=== PATIENT | female | born 1990 | race Caucasian/White ===

== ENCOUNTER 2017-06-13 12:31 | Emergency (ER) | payer SELFPAY ==
[~2017-06-13] VITALS: Ht 165.1 cm; Wt 95.4 kg
[~2017-06-13 12:31] MED LIST: ALPR1TAB2 PO; ALPR2TAB1 PO; ESCI10TA PO
[2017-06-13 12:42] VITALS: BP 113/92
--- NOTE | 2017-06-13 12:47 | NUR ---
PT AMBULATED TO [facility]
--- NOTE | 2017-06-13 12:54 | NUR ---
PATIENT PRESENTS TO ED WITH C/O THROAT PAIN X 2 DAYS----RECENTLY WITH COLD SYMPTOMS PAIN UPON SWALLOWING---- FULL CLEAR SPEECH, NO DROOLING NOTED HX---ANXIETY, DEPRESSION RX---LEXAPRO, XANAX; DENIES N/V/D; SKIN IS PINK/WARM/DRY; AAOX4 WITH EVEN AND STEADY GAIT; LUNGS CLEAR BL; HR EVEN AND REGULAR; PT DENIES ANY FEVER, CP, SOB, OR COUGH AT THIS TIME; PATIENT STATES PAIN OF 0/10 AT THIS TIME; VSS; PATIENT POSITIONED FOR COMFORT; ER MD MADE AWARE OF PT STATUS.
--- NOTE | 2017-06-13 12:54 | NUR ---
DR YBARRA EVALUATING PT AT BEDSIDE
[2017-06-13] MEDS ORDERED: DEXAMETHASONE 4 MG/ML VIAL PO ONE (13:05)
[2017-06-13 13:33] VITALS: BP 133/73
--- NOTE | 2017-06-13 13:33 | NUR ---
Patient discharged with v/s stable. Written and verbal after care instructions given and explained. Patient verbalized understanding. Ambulatory with steady gait. All questions addressed prior to discharge. Advised to follow up with PMD.
== END 2017-06-13 13:33 | disposition home or self-care (01) ==
LOC: MED 12:31
DX: J02.9 Acute pharyngitis, unspecified (principal); R50.9 Fever, unspecified; F41.9 Anxiety disorder, unspecified; F17.210 Nicotine dependence, cigarettes, uncomplicated; Z79.899 Other long term (current) drug therapy; Z88.2 Allergy status to sulfonamides; Z88.8 Allergy status to other drugs, medicaments and biological substances
CPT/HCPCS: 99282; J1100

== ENCOUNTER 2017-06-19 07:23 | Emergency (ER) | payer SELFPAY ==
[~2017-06-19] VITALS: Ht 162.6 cm; Wt 96.2 kg
[2017-06-19 07:27] VITALS: BP 129/75
--- NOTE | 2017-06-19 07:31 | NUR ---
PT AMBULATED TO ER BED 03
--- NOTE | 2017-06-19 07:35 | NUR ---
27 YO F BIB SELF W/ C/O RIGHT THROAT PAIN AND RIGHT EAR PAIN X 1.5 WEEKS. PT REPORTS SHE WAS HERE IN ER ON Wednesday06/12/17 FOR BILATERAL THROAT PAIN AND REPORTS THAT NOW THERE IS ONLY PAIN ON THE RIGHT SIDE OF THROAT AND UP TO HER RIGHT EAR. PT HAD TUBES PLACED IN HER EARS FOR CHRONIC EAR INFECTIONS A CHILD, BUT REPORTS NO OTHER PAST MED HX. ALLERGY TO SULFA. SLIGHT REDNESS/SWELLING NOTED ON RIGHT SIDE OF THROAT. PT DENIES FEVER/CHILLS. PT DENIES COUGH/ABD PAIN, N/V/D AT THIS TIME. LUNG SOUNDS CLEAR BILATERALLY. NO S/S OF ACUTE RESPIRATORY DISTRESS. PT A&O X4. GCS 15. STEADY GAIT. CMS INTACT. ER MD VOGT NOTIFIED. SAFETY PRECAUTIONS IN PLACE. PT NEEDS MET AT THIS TIME. WILL CONTINUE TO MONITOR.
--- NOTE | 2017-06-19 07:55 | NUR ---
STREP SWAB AND THROAT CULTURE COLLECTED AND SENT WITH LAB.
--- NOTE | 2017-06-19 09:30 | NUR ---
Patient discharged with v/s stable. Written and verbal after care instructions given and explained. Patient alert, oriented and verbalized understanding of instructions. Ambulatory with steady gait. All questions addressed prior to discharge. ID band removed. Patient advised to follow up with PMD. Rx of Ibuprofen 600 mg tab and Amoxicillin 500mg tab given. Patient educated on indication of medication including possible reaction and side effects. Opportunity to ask questions provided and answered.
[2017-06-19 09:46] VITALS: BP 128/73
--- NOTE | 2017-06-22 07:09 | NUR ---
PATIENT DISCHARGED HOME WITH SCRIPT FOR AMOXICILLIN DR LAGUERRE STATES SHE IS COVERED.
== END 2017-06-19 09:30 | disposition home or self-care (01) ==
LOC: MED 07:23
DX: H66.91 Otitis media, unspecified, right ear (principal); J03.90 Acute tonsillitis, unspecified; F32.9 Major depressive disorder, single episode, unspecified; F41.9 Anxiety disorder, unspecified; Z88.8 Allergy status to other drugs, medicaments and biological substances
CPT/HCPCS: 36415; 86308; 87081; 99284

== ENCOUNTER 2017-11-25 11:01 | Emergency (ER) | payer SELFPAY ==
[~2017-11-25] VITALS: Ht 261.6 cm; Wt 81.6 kg
--- NOTE | 2017-11-25 11:18 | NUR ---
PATIENT AMBULATED TO BED 2 AT THIS TIME.
[2017-11-25 11:24] VITALS: BP 126/85
--- NOTE | 2017-11-25 11:30 | NUR ---
PT. CAME INTO THE ED DUE TO ANXIETY SINCE THIS MORNING. PT. STATES " AT AROUND 430 AM I STARTED GETTING ANXIOUS I TRIED TO CALM MYSELF DOWN AND IT DIDNT WORK, I CALLED MY DOCTOR AND HE DIDNT HAVE AN APPT FOR A MONTH. I STOPPED TAKING MY MEDICATION X 1 MONTH BECAUSE I STARTED TRYING DIFFERENT THINGS LIKE MEDITATION AND I HAD BEEN DOING FINE". PT. ABLE TO SPEAK IN COMPLETE AND FULL SENTENCES AND RR EVEN AND UNLABORED. PT. C/O SOB , LS: CLEAR THROUGHOUT AT LOBES BILATERALLY. O2 SAT: 100% VIA ROOM AIR. PT. STATES " I HAVE THROWN UP TWICE" NO BLOOD IN VOMIT. PT. C/O DIAHRRHEA WELL. PER PT " I VOMIT AND GET DIAHRRHEA EVERYTIME I GET AN ANXIETY ATTACK, I HAVNT BEEN THIS BAD IN YEAR". ER MD NOTIFIED. VSS. SAFETY PRECAUTIONS IMPLEMENTED. CALL LIGHT WITHIN REACH. WILL CONTINUE TO MONITOR.
--- NOTE | 2017-11-25 11:45 | NUR ---
ER MD CARABALLO AT BEDSIDE , EVALUATING PATIENT.
[2017-11-25] MEDS ORDERED: ALPRAZolam 0.5 MG TAB PO ONE (12:25)
[2017-11-25] MEDS ORDERED: ONDANSETRON 4 MG ODT PO ONE (12:25)
--- NOTE | 2017-11-25 12:45 | NUR ---
PT. RESTING COMFORTABLY IN BED, RR EVEN AND UNLABORED. VSS. BED IN LOWEST POSITION. WILL CONTINUE TO MONITOR.
--- NOTE | 2017-11-25 13:59 | NUR ---
PT. IN BED , VSS. RR EVEN AND UNLABORED. PT. PROVIDED WATER. BED IN LOWEST POSITION. WILL CONTINUE TO MONITOR.
[2017-11-25 14:09] VITALS: BP 124/78
--- NOTE | 2017-11-25 14:09 | NUR ---
Patient discharged with v/s stable. Written and verbal after care instructions given and explained. Patient alert, oriented and verbalized understanding of instructions. Ambulatory with steady gait. All questions addressed prior to discharge. ID band removed. Patient advised to follow up with PMD. Rx of XANAX AND ATIVAN given. Patient educated on indication of medication including possible reaction and side effects. Opportunity to ask questions provided and answered.
== END 2017-11-25 14:09 | disposition home or self-care (01) ==
LOC: MED 11:01
DX: F41.9 Anxiety disorder, unspecified (principal); Z88.1 Allergy status to other antibiotic agents; Z88.2 Allergy status to sulfonamides; Z79.899 Other long term (current) drug therapy
CPT/HCPCS: 81002; 81025; 99284; S0119